=== PATIENT | male | born 1980 | race Caucasian/White ===

== ENCOUNTER 2024-01-06 20:19 | Emergency (ER) | payer SELFPAY ==
[~2024-01-06] VITALS: Ht 177.8 cm; Wt 81.6 kg
[2024-01-06 21:33] LABS: BASOPHILS # (AUTO) 0.1 K/uL (0.0-0.2); BASOPHILS % (AUTO) 1.3 % (0.0-2.0); EOSINOPHILS # (AUTO) 0.1 K/uL (0.0-0.7); HEMATOCRIT 45 % (39-51); HEMOGLOBIN 15.2 g/dL (13.5-17.5); LYMPHOCYTES # (AUTO) 2.4 K/uL (0.8-4.8); LYMPHOCYTES % (AUTO) 33.1 % (20.0-44.0); MEAN CORPUSCULAR HEMOGLOBIN 30 PG (26.0-33.0); MEAN CORPUSCULAR HGB CONC 34 g/dl (31.0-36.0); MEAN CORPUSCULAR VOLUME 88 fL (80-96); MONOCYTES # (AUTO) 0.6 K/uL (0.1-1.30); MONOCYTES % (AUTO) 8.7 % (2.0-12.0); NEUTROPHILS % (AUTO) 54.9 % (43.0-81.0); PLATELET COUNT (AUTO) 276 K/uL (150-450); RED BLOOD CELL COUNT(AUTO) 5.08 MIL/uL (4.5-6.0); RED CELL DISTRIBUTION WIDTH 13.4 % (11.5-15.0); WHITE BLOOD COUNT (AUTO) 7.4 K/uL (4.3-11.0)
[2024-01-06 21:42] LABS: CREATININE 0.9 mg/dL (0.6-1.3); POTASSIUM 4.3 mmol/L (3.5-5.1)
[2024-01-06 21:48] LABS: ALBUMIN 3.6 g/dL (3.4-5.0); BILIRUBIN,TOTAL 0.5 mg/dL (0.2-1.0); TOTAL PROTEIN, SERUM 7.6 g/dL (6.4-8.2)
[2024-01-06 21:53] LABS: LACTIC ACID 1.6 mmol/L (0.4-2.0)
[2024-01-06] MEDS ORDERED: CEPH500T PO (23:12)
[2024-01-06] MEDS ORDERED: CEFTRIAXONE 1 G VIAL ONE (23:18)
[2024-01-06] MEDS: CEFTRIAXONE 1 G VIAL IM ONE (23:28)
[2024-01-06] MEDS ORDERED: CLIN150C16 PO (23:29)
[2024-01-06] MEDS ORDERED: CLINDAMYCIN 900 MG/6 ML VIAL ONE (23:39)
[2024-01-06] MEDS: CLINDAMYCIN PHOSPHATE IV 600 MG/4 ML VIAL IM ONE (23:56)
[2024-01-07 00:03] VITALS: BP 116/72; TEMP 97.7; O2SAT 97
== END 2024-01-07 00:03 | disposition home or self-care (01) ==
LOC: ER 20:41
DX: T81.40XA Infection following a procedure, unspecified, initial encounter (principal); Z88.8 Allergy status to other drugs, medicaments and biological substances; L08.89 Other specified local infections of the skin and subcutaneous tissue
CPT/HCPCS: 99285; 93971; 96372; 93005; 73630; 73590; 85025; 87040; 83605; 36415; 80053; J3490; J0696